=== PATIENT | female | born 1995 | race Caucasian/White ===

== ENCOUNTER 2021-11-11 10:52 | Outpatient (CLI) | payer OTHER ==
[2021-11-11 22:59] LABS: SARS-CoV-2 PCR by NAA Not Detected (NotDetected)
== END 2021-11-11 10:53 | disposition home or self-care (01) ==
LOC: CSHLAB 10:52
PROVIDERS: ATTEND Family Medicine
DX: Z20.822 Contact with and (suspected) exposure to COVID-19 (principal)
CPT/HCPCS: U0003; U0005

== ENCOUNTER 2021-11-13 05:51 | Inpatient (IN) | payer OTHER ==
[2021-11-13] MEDS: Lactated Ringer's 1,000 ML IV SCH ×2 (06:45→10:15)
[2021-11-13 06:52] VITALS: BMI 26.2
[2021-11-13] MEDS ORDERED: NS w/ Oxytocin 30 units 500 ML IV SCH ×2 (07:00→22:00)
[2021-11-13] MEDS ORDERED: Promethazine HCl 25 MG/ML VIAL IM PRN ×5 (07:00→21:50)
[2021-11-13] MEDS ORDERED: Carboprost 250 MCG/ML AMP IM PRN ×2 (07:00→08:30)
[2021-11-13] MEDS ORDERED: Ondansetron PF 4 MG/2 ML Vial SLOW IVP PRN (07:00)
[2021-11-13] MEDS ORDERED: Lidocaine 1% (PF) 30 ML VIAL SC PRN (07:00)
[2021-11-13 07:08] LABS: Hemoglobin 11.4 g/dL (12.0-15.5); Mean Corpuscular HGB CONC 33.8 g/dL (32.0-36.0); Mean Corpuscular Hemoglobin 28.7 pg (27.0-33.0); Mean Corpuscular Volume 84.9 fl (81.6-98.3); Mean Platelet Volume 9.4 fl (7.4-10.4); Platelet Count 270 10x3/uL (150-450); RBC Distribution Width 12.2 % (11.5-14.5); Red Blood Cell (RBC) Count 3.97 10x6/uL (3.90-5.03); White Blood Cell (WBC) Count 9.1 10x3/uL (3.5-10.5)
[2021-11-13 07:44] LABS: Hep B Surf Ag Non-Reactive S/CO (NonReactive)
[2021-11-13 07:46] LABS: Syphilis Antibody Nonreactive (Nonreactive)
[2021-11-13 07:48] LABS: HBSAg Index 0.17 S/CO (0-0.99)
[2021-11-13] MEDS ORDERED: ePHEDrine Sulfate 50 MG/10 ML VIAL ONE ×2 (08:00→16:43)
[2021-11-13] MEDS ORDERED: Bupivacaine 0.25% HCL 30 ML VIAL ONE (08:00)
[2021-11-13] MEDS ORDERED: Ondansetron PF 4 MG/2 ML Vial IVP PRN ×4 (08:22→21:50)
[2021-11-13] MEDS ORDERED: Misoprostol 200 MCG TAB RC PRN (08:30)
[2021-11-13] MEDS ORDERED: Methylergonovine 0.2 MG/ML VIAL IM PRN (08:30)
[2021-11-13] MEDS ORDERED: Fentanyl 2 mcg/Bup 0.1% Cadd 100 ML ONE (10:07)
[2021-11-13] MEDS ORDERED: ePHEDrine Sulfate 50 MG/10 ML VIAL SLOW IVP PRN (10:36)
[2021-11-13] MEDS ORDERED: Hydrocerin (Eucerin) Cream 120 gm Jar TOP PRN ×2 (10:36→18:03)
[2021-11-13] MEDS ORDERED: Acetaminophen 325 MG TAB PO PRN (10:36)
[2021-11-13] MEDS ORDERED: Naloxone HCl 0.4 mg/ml Vial IVP PRN ×4 (10:36→18:03)
[2021-11-13] MEDS ORDERED: diphenhydrAMINE 50 MG/ML VIAL IVP PRN ×2 (10:36→18:03)
[2021-11-13] MEDS ORDERED: Lactated Ringer's 500 ML IV PRN (10:36)
[2021-11-13] MEDS ORDERED: Communication Order-Pharmacy FS SCH ×2 (10:45→18:15)
[2021-11-13] MEDS ORDERED: Fentanyl 2 mcg/Bupivacaine 0.1% Cassette 100 ML EPIDURAL SCH (10:45)
[2021-11-13] MEDS ORDERED: Azithromycin 500 MG VIAL ONE (16:24)
[2021-11-13] MEDS ORDERED: ceFAZolin 2 GM/Dextrose 50 ML IVPB ONE (16:25)
[2021-11-13] MEDS ORDERED: Ondansetron PF 4 MG/2 ML Vial ONE (16:43)
[2021-11-13] MEDS ORDERED: Lidocaine 2% MPF 10 ML AMP (For Epidural Use) ONE (16:44)
[2021-11-13] MEDS ORDERED: Oxytocin 10 UNITS/ML VIAL ONE (16:44)
[2021-11-13] MEDS ORDERED: PHENYLEPHRINE-NS 100 MCG/ML 10 ML SYRINGE ONE (16:44)
[2021-11-13] MEDS ORDERED: Dexamethasone 4 mg/ml Vial ONE (16:44)
[2021-11-13] MEDS ORDERED: Morphine PF 10 MG/10 ML VIAL ONE (17:02)
[2021-11-13] MEDS ORDERED: Ketorolac Tromethamine 30 MG/ML VIAL ONE (17:29)
[2021-11-13] MEDS ORDERED: Meperidine HCl/PF 25 MG/ML VIAL SLOW IVP PRN (18:03)
[2021-11-13] MEDS ORDERED: Naloxone HCl 0.4 mg/ml Vial IV PRN (18:03)
[2021-11-13] MEDS ORDERED: Fentanyl 100 MCG/2 ML VIAL SLOW IVP PRN (18:03)
[2021-11-13] MEDS ORDERED: Promethazine HCl 25 MG SUPP PR PRN (18:03)
[2021-11-13] MEDS ORDERED: Ketorolac Tromethamine 30 MG/ML VIAL IVP PRN (18:03)
[2021-11-13] MEDS ORDERED: Ondansetron HCl/PF 4 MG/2 ML Vial IVP PRN (18:03)
[2021-11-13] MEDS ORDERED: HYDROmorphone 2 MG/ML VIAL SLOW IVP PRN (18:14)
[2021-11-13] MEDS ORDERED: Ketorolac Tromethamine 30 MG/ML VIAL IVP SCH ×2 (18:15→23:59)
[2021-11-13] MEDS ORDERED: Lanolin Ointment 7 GM TUBE TOP PRN (21:50)
[2021-11-13] MEDS ORDERED: Boostrix 0.5 ML (Tdap) VIAL IM ONE (21:50)
[2021-11-13] MEDS ORDERED: hydrALAZINE 20 MG/ML VIAL SLOW IVP PRN (21:50)
[2021-11-13] MEDS ORDERED: Bisacodyl 10 MG SUPP PR PRN (21:50)
[2021-11-13] MEDS ORDERED: diphenhydrAMINE 25 MG CAP PO PRN (21:50)
[2021-11-13] MEDS ORDERED: Docusate 100 MG CAP PO SCH (22:15)
[2021-11-13] MEDS ORDERED: Ferrous Sulfate 325 MG TAB PO SCH (22:15)
[2021-11-14] MEDS: Lactated Ringer's 1,000 ML IV SCH (02:48)
[2021-11-14] MEDS: Ketorolac Tromethamine 30 MG/ML VIAL IVP SCH ×5 (02:49→22:22)
[2021-11-14 04:53] LABS: Hemoglobin 10.4 g/dL (12.0-15.5); Mean Corpuscular HGB CONC 33.4 g/dL (32.0-36.0); Mean Corpuscular Hemoglobin 28.5 pg (27.0-33.0); Mean Corpuscular Volume 85.2 fl (81.6-98.3); Mean Platelet Volume 9.3 fl (7.4-10.4); Platelet Count 241 10x3/uL (150-450); Red Blood Cell (RBC) Count 3.65 10x6/uL (3.90-5.03); White Blood Cell (WBC) Count 12.9 10x3/uL (3.5-10.5)
[2021-11-14] MEDS ORDERED: HYDROcodone/Acetaminophen 5/325 mg Tablet PO PRN ×2 (06:15)
[2021-11-14] MEDS: Prenatal Vitamin 1 TAB PO SCH (08:51)
[2021-11-14] MEDS: Docusate 100 MG CAP PO SCH ×2 (08:51→22:22)
[2021-11-14] MEDS: Ferrous Sulfate 325 MG TAB PO SCH (08:51)
[2021-11-14] MEDS: Acetaminophen 500 MG TAB PO PRN ×2 (10:39→16:37)
[2021-11-14] MEDS: Simethicone Chewable 80 MG TAB PO PRN (16:51)
[2021-11-15] MEDS: Simethicone Chewable 80 MG TAB PO PRN ×3 (00:08→18:45)
[2021-11-15] MEDS: Ibuprofen 800 MG TAB PO SCH ×2 (04:29→13:58)
[2021-11-15] MEDS: Ferrous Sulfate 325 MG TAB PO SCH ×2 (07:27→10:30)
[2021-11-15] MEDS: Docusate 100 MG CAP PO SCH (10:35)
[2021-11-15] MEDS: Prenatal Vitamin 1 TAB PO SCH (10:36)
[2021-11-16] MEDS: Ferrous Sulfate 325 MG TAB PO SCH ×2 (03:21→07:25)
[2021-11-16] MEDS: Ibuprofen 800 MG TAB PO SCH ×2 (03:21→07:25)
[2021-11-16] MEDS: Docusate 100 MG CAP PO SCH ×2 (03:22→09:38)
[2021-11-16 07:59] VITALS: BP 113/66; TEMP 98.2
[2021-11-16] MEDS: Prenatal Vitamin 1 TAB PO SCH (09:38)
== END 2021-11-16 13:05 | disposition home or self-care (01) | DRG 788 ==
LOC: CSHLD 05:51 → CSHPP 21:30
PROVIDERS: ADMIT Family Medicine; ATTEND Family Medicine
PROC: 10D00Z1 Extraction of Products of Conception, Low, Open Approach (ICD-10-PCS; principal; 2021-11-13)
PROC: 10907ZC Drainage of Amniotic Fluid, Therapeutic from Products of Conception, Via Natural or Artificial Opening (ICD-10-PCS; 2021-11-13)
PROC: 3E033VJ Introduction of Other Hormone into Peripheral Vein, Percutaneous Approach (ICD-10-PCS; 2021-11-13)
DX: O99.344 Other mental disorders complicating childbirth (principal); Z3A.40 40 weeks gestation of pregnancy; Z37.0 Single live birth; F25.9 Schizoaffective disorder, unspecified; O76 Abnormality in fetal heart rate and rhythm complicating labor and delivery; O69.82X0 Labor and delivery complicated by other cord entanglement, without compression, not applicable or unspecified; O69.81X0 Labor and delivery complicated by cord around neck, without compression, not applicable or unspecified
CPT/HCPCS: 36415; 51702; 85027; 86780; 86850; 86900; 86901; 87340; J1100; J1200; J1885; J2274; J2405; J2590; J7120; S0020